=== PATIENT | female | born 1990 | race Caucasian/White ===

== ENCOUNTER 2017-06-27 09:35 | Emergency (ER) | payer BC ==
[2017-06-27 10:21] LABS: URINE BLOOD (Dip) POC Negative (NEGATIVE); URINE GLUCOSE (Dip) POC Negative (NEGATIVE); URINE KETONES (Dip) POC Negative (NEGATIVE); URINE LEUKOCYTE EST (Dip) POC Negative (NEGATIVE); URINE NITRITE (Dip) POC Negative (NEGATIVE); URINE TOTAL PROTEIN POC Negative (NEGATIVE)
[2017-06-27] MEDS: ONDANSETRON (ODT) 4 MG TAB ODT (10:23)
[2017-06-27] MEDS: DIAZEPAM 5 MG TAB PO (10:23)
[2017-06-27] MEDS: KETOROLAC 30 MG INJ IM (10:24)
== END 2017-06-27 11:50 | disposition home or self-care (01) ==
LOC: FTE 09:35
DX: R51 Headache (principal); J45.909 Unspecified asthma, uncomplicated
CPT/HCPCS: 70450; 81003; 81025; 96372; 99285-25